=== PATIENT | male | born 2000 | race Caucasian/White ===

== ENCOUNTER 2023-10-16 14:38 | Outpatient (AMB) | payer OTHER, SELFPAY ==
--- NOTE | 2023-10-16 14:44 | A.OFFVIS_ITS ---
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 Patient reports that he has pain in the dorsal aspects of both the forearms. He has had medial and lateral cortisone injections about three years ago for tendonitis, these injections worked for about 1.5 to 2 years. Denies nudeness and tingling. He is an active weightlifter and this is difficult for him recently because of his lateral elbow pain. [facility] Social History (Updated 10/16/23 @ 14:47 by Katherin Sepulveda [facility]) Patient Tobacco Use Status: Never used Tobacco Current occupational status: employed Current occupation: [employer] Physical Exam Vital Signs: BMI result Body Mass Index 25.7 Const General: cooperative, healthy appearing, no acute distress and well groomed Orientation/consciousness: oriented to person and oriented to place HEENT Head: Yes normal to inspection, Yes normocephalic and Yes atraumatic Eyes General: appearance normal, both eyes and all related structures Alignment and Position: alignment normal Conjunctivae: conjunctivae normal EOM: EOMs intact bilaterally Neck Neck: Yes normal visual inspection and Yes trachea midline Resp Other: No rerpiratory distress Effort & Inspection: normal respiratory effort and able to speak in complete sentences Cardio Other: Palpable radial pulse with no appreciable rythmic abnormalities GI Other: No abdominal distension Back/Spine/Pelvis Cervical Spine: normal cervical lordosis and cervical ROM normal Skin General skin exam: no rashes or lesions noted Neuro General: oriented to person, oriented to place and gait normal Extrem Other: TTP bilateral lateral epicondyles and pain with ressited wrist extension Office Procedures Joint Injection/Drain Joint Injection/Drain Details: Injected 1 mL of Decadron and 3 mL 1% lidocaine and 3 mL of 0.25% Marcaine. Site was prepped using aseptic technique. Patient tolerated the procedure well. Primary Site: right tennis elbow Secondary Site: left tennis elbow Approach Used: anterolateral Coding 31516 - Epicondyle (49909 x2) Procedure code (CPT) selection complete Assessment & Plan Assessment & Plan (1) Lateral epicondylitis of both elbows: Code(s): M77.11 - Lateral epicondylitis, right elbow; M77.12 - Lateral epicondylitis, left elbow Plan: Bilateral lateral epicondylitis. Injected both elbows Discussed activity modification and PRP Follow up as needed Plan Injected bilateral elbows Coding Level of Care Code New Pt Level 3 (38887) Diagnoses Lateral epicondylitis of both elbows M77.11; M77.12 CPT Codes Coding - Joint 2: 93581 - Epicondyle ([id number])
[2023-10-16 14:46] VITALS: BMI 25.7
== END 2023-10-16 15:27 | disposition home or self-care (01) ==
PROVIDERS: Visit Provider Orthopaedic Surgery
DX: M77.11 Lateral epicondylitis, right elbow (principal); M77.12 Lateral epicondylitis, left elbow
CPT/HCPCS: 20550; 99203

== ENCOUNTER → 2023-10-16 14:38 | Outpatient (BNVA) | payer OTHER, SELFPAY | PROVIDERS: Visit Provider Orthopaedic Surgery | DX: M77.11 Lateral epicondylitis, right elbow (principal); M77.12 Lateral epicondylitis, left elbow | CPT/HCPCS: 20551; J0665; J1100 ==

== ENCOUNTER 2025-03-25 14:22 | Outpatient (AMB) | payer BC, SELFPAY ==
--- OUTSIDE RECORDS SUMMARY | 2025-03-25 15:20 | XMS_ITS | Encounter Summary ---
Author Organization [facility] Address [address] [place] [address] Phone Care Team Providers Care Shotgun Shell Loading Machine Operator Name Role Phone Kasie Campbell MD Primary Care Provider [phone] Encounter Details Date Type Department Care Team (Late st Contact Info) Description 04/16/2015 Documentation [facility] [place] Family Medicine [address] [place], [place] [id number] Family Medicine, Physician [address] [place], [place] 478[address] Social History Tobacco Use Types Packs/Day Years Used Date Smoking Tobacco: Never Assessed Sex and Gender Information Value Date Recorded Sex Assigned at Not on file Legal Sex Male 5:07 PM EDT Gender Identity Not on file Sexual Orientation Not on file documented as of this encounter Plan of Treatment Not on file documented as of this encounter Visit Diagnoses Not on filedocumented in this encounter Care Teams Shotgun Shell Loading Machine Operator Relationship Specialty Start Date End Date Kasie Campbell MD [address] [place] [address] PCP - General Pediatrics 03/13/20 11/24/22 documented as of this encounter
--- OUTSIDE RECORDS SUMMARY | 2025-03-25 15:20 | XMS_ITS | Encounter Summary ---
Author Organization [facility] Address [address] [place] [address] Phone Care Team Providers Care Assembler Musical Equipment Name Role Phone Kasie Campbell MD Primary Care Provider [phone] Encounter Details Date Type Department Care Team (Late st Contact Info) Description 01/20/2014 Documentation [facility] [place] [address] [place], [place] [id number] Family Medicine, Physician [address] [place], [place] 876451 Social History Tobacco Use Types Packs/Day Years [...] on filedocumented in this encounter Care Teams Assembler Musical Equipment Relationship Specialty Start Date End Date Kasie Campbell MD [address] [place] [address] PCP - General Pediatrics 03/13/20 11/24/22 documented as of this encounter
--- OUTSIDE RECORDS SUMMARY | 2025-03-25 15:20 | XMS_ITS | Encounter Summary ---
Author Organization [facility] Address [address] [place] [address] Phone Care Team Providers Care Cable Armorer Operator Name Role Phone Kasie Campbell MD Primary Care Provider [phone] Encounter Details Date Type Department Care Team (Late st Contact Info) Description 04/04/2013 Documentation [facility] [place] Family Medicine [address] [place], [place] [phone] Family Medicine, Physician [address] [place], [place] 805461 Social History Tobacco Use Types Packs/Day Years [...] on filedocumented in this encounter Care Teams Cable Armorer Operator Relationship Specialty Start Date End Date Kasie Campbell MD [address] [place] [address] PCP - General Pediatrics 03/13/20 11/24/22 documented as of this encounter
--- OUTSIDE RECORDS SUMMARY | 2025-03-25 15:20 | XMS_ITS | Encounter Summary ---
Author Organization [facility] Address [address] [place] [address] Phone Care Team Providers Care Vb Developer Name Role Phone Kasie Capmbell MD Primary Care Provider [phone] Encounter Details Date Type Department Care Team (Late st Contact Info) Description 07/18/2016 Documentation [facility] [place] Family Medicine [address] [place], [place] [phone] Family Medicine, Physician [address] [place], [place] [address]71 Social History Tobacco Use Types Packs/Day Years [...] on filedocumented in this encounter Care Teams Vb Developer Relationship Specialty Start Date End Date Kasie Campbell MD [address] [place] [address] PCP - General Pediatrics 03/13/20 11/24/22 documented as of this encounter
--- OUTSIDE RECORDS SUMMARY | 2025-03-25 15:20 | XMS_ITS | Encounter Summary ---
Author Organization [facility] Address [address] [place] [address] Phone Care Team Providers Care Remote Sensing Engineer Name Role Phone Kasie Campbell MD Primary Care Provider [phone] Encounter Details Date Type Department Care Team (Late st Contact Info) Description 08/04/2010 Documentation [facility] [place] Family Medicine [address] [place], [place] [phone] Family Medicine, Physician [address] [place], [place] 420531 Social History Tobacco Use Types Packs/Day Years [...] on filedocumented in this encounter Care Teams Remote Sensing Engineer Relationship Specialty Start Date End Date Kasie Campbell MD [address] [place] [address] PCP - General Pediatrics 03/13/20 11/24/22 documented as of this encounter
--- OUTSIDE RECORDS SUMMARY | 2025-03-25 15:20 | XMS_ITS | Encounter Summary ---
Author Organization [facility] Address [address] [place] [address] Phone Care Team Providers Care Waiter/Waitress Economy Class Name Role Phone Kasie Campbell MD Primary Care Provider [phone] Encounter Details Date Type Department Care Team (Late st Contact Info) Description 03/16/2017 Conversion Encounter [facility] [address] [place] [address] Social History Tobacco Use Types Packs/Day Years Used Date Smoking Tobacco: Never Comments:Never smoker Sex and Gender Information Value Date Recorded Sex Assigned at Not on file Legal Sex Male 5:07 PM EDT Gender Identity Not on file Sexual Orientation Not on file documented as of this encounter Plan of Treatment Not on file documented as of this encounter Visit Diagnoses Not on filedocumented in this encounter Care Teams Waiter/Waitress Economy Class Relationship Specialty Start Date End Date Kasie Campbell MD [address] [place] [address] PCP - General Pediatrics 03/13/20 11/24/22 documented as of this encounter
--- OUTSIDE RECORDS SUMMARY | 2025-03-25 15:20 | XMS_ITS | Encounter Summary ---
Author Organization [facility] Address [address] [place] [address] Phone Care Team Providers Care Sr. Operations Manager Name Role Phone Kasie Campbell MD Primary Care Provider [phone] Encounter Details Date Type Department Care Team (Late st Contact Info) Description 02/05/2016 [place]ation [facility] [place] [address] [place], [place] [phone] Family Medicine, Physician [address] [place], [place] 585661 Social History Tobacco Use Types Packs/Day Years [...] on filedocumented in this encounter Care Teams Sr. Operations Manager Relationship Specialty Start Date End Date Kasie Campbell MD [address] [place] [address] PCP - General Pediatrics 03/13/20 11/24/22 documented as of this encounter
--- OUTSIDE RECORDS SUMMARY | 2025-03-25 15:20 | XMS_ITS | Encounter Summary ---
Author Organization [facility] Address [address] [place] [address] Phone Care Team Providers Care Hog Ringer Name Role Phone Kasie Campbell MD Primary Care Provider [phone] Encounter Details Date Type Department Care Team (Late st Contact Info) Description 11/24/2015 Documentation [facility] [place] [address] [place], [place] [phone] Family Medicine, Physician [address] [place], [place] 462871 Social History Tobacco Use Types Packs/Day Years [...] on filedocumented in this encounter Care Teams Hog Ringer Relationship Specialty Start Date End Date Kasie Campbell MD [address] [place] [address] PCP - General Pediatrics 03/13/20 11/24/22 documented as of this encounter
--- OUTSIDE RECORDS SUMMARY | 2025-03-25 15:20 | XMS_ITS | Clinical Summary ---
Author Organization [facility] Address [address] [place] [address] Phone Care Team Providers Care Processing Manager Name Role Phone Unavailable Primary Care Provider Unavailabl e Allergies No known active allergies Medications No known medications Active Problems Problem Noted Date Diagnosed Date Food allergy 03/09/2021 Overview (03/09/2021): 03/09/2021 (age 20yr): History of abdominal symptoms with seafood ingestion History: 10/20/2020: DUSTIN, plan for follow up for skin testing. No further notes in chart Vision problem 03/16/2020 Overview (03/16/2020): 03/16/2020 (age 19yr): failed vision screen. He is seen an check clerk, has an appointment coming soon. He is trying to get his contact adjusted properly. Assessment & Plan (03/16/2020 9:25 AM EDT): 03/16/2020 (age 19yr): failed vision screen. He is seen an check clerk, has an appointment coming soon. He is trying to get his contact adjusted properly. Borderline high cholesterol 03/11/2020 Overview (03/11/2020): 11/2018: Non HDL-C 146 Assessment & Plan (03/16/2020 9:25 AM EDT): 03/16/2020 (age 19yr): Philip has been eating healthier and exercising. Will recheck cholesterol next year summer 2020 Essential hypertension 11/15/2017 Overview (03/01/2018): Followed by Dr Morris in Cardiology. Repeated BPS showed systolic in the 130s. A bit higher than the new standard of below 130 for normal but below the old standard of 140. Without other risk factors, Dr Morris suggests no treatment. He made suggestions for diet and exercise to prevent further elevation of BP. Assessment & Plan (03/16/2020 9:08 AM EDT): BP normal today. 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 Janay Villegas in [facility] every 2 year. They suggest Vit A palmitate 15,000 U/day, Lutein 12 mg/day and DHA 200 mg/day (or 2 3-oz servings of DHA rich fish like Tuna, salmon, Mackerel or sardines twice a week). Also suggest checking LFTs yearly if taking Vit A. Hat and sunglasses when outside. 03/11/2020 (age 19yr): Last visit was 04/2019, due for follow up 04/2021 Assessment & Plan (03/16/2020 9:20 AM EDT): 03/16/2020 (age 19yr): plans to follow up 04/2021 with [facility] Disease [facility] as recommended. Not taking supplements at all, not interested in it. Resolved Problems Problem Noted Date Diagnosed Date Resolved Date Chronic constipation 09/28/2016 019 Immunizations Immunization Administration Dates Next Due DTaP 5 07/16/2003, 1,1999,10/18,1999 H1N1 05/30/2009 HPV Vaccine 9 Valent 08/25/2015,04/15/2015 HPV, Quadrivalent 11/03/2014 Hep A, ped/adol 11/03/2014,10/31/2013 Hep B, ped/adol 1999,1999,1999 Hib (PRP-T) 10/20/2000, 0,1999,08/25 IPV 07/16/2003, 0,1999,08/25 Influenza Split 05/25/2012,10/25/2011,08/05/2010 Influenza, injectable, quadr ivalent, preservative free 05/12/2020,07/18/2019,04/26/2018,09/29,11/23/2016,04/15/2015,04/21/2014 Influenza, injectable, trivalent 05/30/2009,07/01 MMR 07/16/2003,06/19/2000 Meningococcal B Trumenba 07/18/2019,12/20/2018 Meningococcal Conj (Menactra) MCV4P 11/11/2015,0 10/25/2011 Pneumococcal Conjugate 10/20/2000,06/19/2000, Tdap 10/25/2011 Varicella 10/15/2007,06/19/2000 Zoster 07/15/2020 Family History Relation Name Status Comments Brother Alive Brother: Alive and well Father Father: High bl ood pressure, Alive and well Mother Alive Mother: Migrain es Other Family history of *Dental caries, Family history of *Sudden /AR under 55, Family history of ADD/ADHD, Family history of Obesity, Family history of Asthma, Family history of *CVA/Stroke, Family history of Deafness, Family history of *Heart Disease, Family history of Elevated cholesterol, Family history of Diabetes mellitus Sister Alive Sister: Alive a nd well Social History Tobacco Use Types Packs/Day Years Used Date Smoking Tobacco: Never Smokeless Tobacco: Never Comments:Never smoker Alcohol Use Standard Drinks/Week Comments Yes 7 (1 standard drink = 0.6 oz pur e alcohol) Drinks every other weekend Hunger/Food Answer Date Recorded In the last 12 months, did y ou or your family ever eat less than you felt you should because there wasn't enough money for food? No 03/16/2020 Stable Housing Answer Date Recorded Are you worried that in the next 2 months you may not have stable housing? No 03/16/2020 Transportation Concerns Answer Date Rec orded In the last 12 months, have you or your family ever had to go without healthcare because you didn't have a way to get there? No 03/16/2020 Hazards in Home Answer Date Recorded Think about the place you li ve. Do you have problems with any of the following? Pests (mice or roaches), mold, no/not working smoke detectors, water leaks, no window guards. No 2019 Financing Utilities Answer Date Recorde d In the last 12 months, has t he electric, gas, oil, or water company threatened to shut off your services in your home? No 03/16/2020 Safety at Home Answer Date Recorded Are you or your family worried about feeling saf e in your home? No 03/16/2020 Outside Support Answer Date Recorded Do you feel that you need mo re support from other people or programs to help you care for yourself or your family? No 03/16/2020 Understanding Health Concerns Answer Da te Recorded Do you need help understandi ng your or your child's healthcare needs (diagnosis, medications, plan, etc.)? No 03/16/2020 Financing Health Concerns Answer Date R ecorded In the last 12 months, was t here a time when your child needed to see a doctor or get medications or supplies but could not because of cost? No 03/16/2020 Missing School or Work Answer Date Eliezer rded Did you or your child miss s chool or work because of a health problem that could have been avoided? No 03/16/2020 Sex and Gender Information Value Date Recorded Sex Assigned at Not on file Legal Sex Male 5:07 PM EDT Gender Identity Not on file Sexual Orientation Not on file Last Filed Vital Signs Vital Sign Reading Time Taken Comments Blood Pressure 128/80 01/15/2021 1:40 PM EDT Pulse 73 07/29/2020 9:50 AM EST Temperature 36.6 C (97.8 F) 01/15/2021 1:40 PM EDT Respiratory Rate - - Oxygen Saturation - - Inhaled Oxygen Concentration - - Weight 83.2 kg (183 lb 5 oz) 01/15/2021 1:40 PM EDT Height 185.4 cm (6' 1 ) 01/15/2021 1:40 PM EDT Body Mass Index 24.19 01/15/2021 1:40 PM EDT Plan of Treatment Health Maintenance Due Date Last Done Comments DTaP,Tdap,and Td Vaccines (7 - Td or Tdap) 10/24/2021 10/25/2011, 07/16/2003, 12/26/2000, Additional history exists COVID-19 Vaccine ( - 2023-2 5 season) 2024 07/13/2021, 12/01/2020 Influenza Vaccines (#1) 2025 05/12/20, 07/18/2019, 04/26/2018, Additional history exists Hepatitis B Vaccines Completed 1999, 1999, 1999 HIB Vaccines Completed 10/20/2000, 07/1999, 1999, Additional history exists Pneumococcal Vaccine Completed 10/20/2000, 06/19/2000, 03/21/2000 IPV Vaccines Completed 07/16/2003, 0 07/1999, 1999, Additional history exists MMR Vaccines Completed 07/16/2003, 06/19/2000 Hepatitis A Vaccines Completed 11/03/2014, 11/01/19 14 HPV Vaccines Completed 08/25/2015, 03/31, 11/03/2014 Meningococcal Vaccine Completed 11/11/2015, 012 Men B Vaccine Completed 07/18/2019, 12/20/2018 Varicella Vaccines Completed 07/15/2020, 0 10/15/2007, 06/19/2000
--- OUTSIDE RECORDS SUMMARY | 2025-03-25 15:20 | XMS_ITS | Patient Health Record ---
Author Organization [facility] Address [address] [place] [address] Care Team Providers Care Benefits Consulting Analyst Name Role Phone Ramin Barone MD Primary Care Provider Unavail able RichAkil Unavailable [phone] Reason For Referral No Information Medications Medication SIG (Take, Route, Fr equency, Duration) Notes Start Date End Date Status Vitamin A 36375 UNIT 2 tablets Orally Once a day Active Lutein Active Fish Oil Active Social History Tobacco Use: Social History Observation Description Date Details (start date - stop date) Never Smoker NA - NA Tobacco Use/Smoking Question Answer Notes Are you a: nonsmoker Additional Findings: Tobacco Non-User Current no n-smoker Alcohol Screen Question Answer Notes Did you have a drink containing alcohol in the p ast year? No Points 0 Interpretation Negative Problems Problem Type SNOMED Code ICD Code Onset Dates Problem Status W/U Status Risk Notes Problem Plantar fascial fibromatosis (M72.2) Active confirmed Plan Of Treatment Pending Test Test Name Order Date X ray : Foot, left 2V 01/02/2012 X ray : Foot, right 2V 01/02/2012 Insurance Providers Payer Name Payer Address Payer Phone Subscriber Number Group Number Insured Name Patient Relationship to Insured Coverage Start Date Coverage End Date [employer] [address] [place] [address] [phone] [id number] Matthew Moulton Sr Natural Child - Insured has Financial Responsibility Medical (General) History Medical History History ICD Code headaches/migraines Surgical History Surgery Date(Month/Year) tonsillectomy
--- OUTSIDE RECORDS SUMMARY | 2025-03-25 15:20 | XMS_ITS | Encounter Summary ---
Author Organization [facility] Address [address] [place] [address] Phone Care Team Providers Care Manager Of Manufacturing Name Role Phone Kasie Campbell MD Primary Care Provider [phone] Encounter Details Date Type Department Care Team (Late st Contact Info) Description 09/22/2016 Documentation [facility] [place] [address] [place], [place] [phone] Family Medicine, Physician [address] [place], [place] [address]36[address] Social History Tobacco Use Types Packs/Day Years [...] on filedocumented in this encounter Care Teams Manager Of Manufacturing Relationship Specialty Start Date End Date Kasie Campbell MD [address] [place] [address] PCP - General Pediatrics 03/13/20 11/24/22 documented as of this encounter
--- OUTSIDE RECORDS SUMMARY | 2025-03-25 15:20 | XMS_ITS | Encounter Summary ---
Author Organization [facility] Address [address] [place] [address] Phone Care Team Providers Care Blocker Polishing Name Role Phone Kasie Campbell MD Primary Care Provider [phone] Encounter Details Date Type Department Care Team (Late st Contact Info) Description 04/04/2013 Documentation [facility] [place] [address] [place], [place] [id number] Family Medicine, Physician [address], [place] [address]4931 Social History Tobacco Use Types Packs/Day Years [...] on filedocumented in this encounter Care Teams Blocker Polishing Relationship Specialty Start Date End Date Kasie Campbell MD [address] [place] [address] PCP - General Pediatrics 03/13/20 11/24/22 documented as of this encounter
--- OUTSIDE RECORDS SUMMARY | 2025-03-25 15:20 | XMS_ITS | Encounter Summary ---
Author Organization [facility] Address [address] [place] [address] Phone Care Team Providers Care Archery Instructor Name Role Phone Kasie Campbell MD Primary Care Provider [phone] Encounter Details Date Type Department Care Team (Late st Contact Info) Description 06/10/2015 [place]ation [facility] [place] [address] [place], [place] [phone] Family Medicine, Physician [address] [place], [place] 8[address]111 Social History Tobacco Use Types Packs/Day Years [...] on filedocumented in this encounter Care Teams Archery Instructor Relationship Specialty Start Date End Date Kasie Campbell MD [address] [place] [address] PCP - General Pediatrics 03/13/20 11/24/22 documented as of this encounter
[2025-03-25 15:38] VITALS: BP 122/70; PULSE 71; TEMP 36.9; O2SAT 98; BMI 26.2
--- NOTE | 2025-03-25 15:38 | AM.OFFWIN_ITS ---
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 Patient states he was playing basketball when he strained his left inguinal region. Patient states he has pain that is worse with ambulation in his not been resolved by taking ibuprofen twice daily. Patient denies having any testicular pain, penile pain, dysuria, urinary frequency and continues to be able to achieve erections. [facility] Social History (Updated 10/16/23 @ 14:47 by Katherin Sepulveda [facility]) Patient Tobacco Use Status: Never used Tobacco Current occupational status: employed Current occupation: [employer] Review of Systems Const All systems reviewed & are unremarkable except as noted in HPI and below Reports no additional complaints and Denies malaise GI Denies abdominal pain, Denies bloating, Denies nausea and Denies vomiting Denies hematuria, Denies oliguria, Denies difficulty urinating, Denies genital pain, Denies testicular mass, Denies urinary frequency and Denies urinary hesitancy Musc Details: left inguinal pain Neuro Reports no additional complaints Psych Reports no additional complaints Endo Reports no additional complaints Aller/Immun Reports no additional complaints Physical Exam Vital Signs: Last Vital Signs Temp 98.4 F 03/25/25 15:38 Pulse 71 03/25/25 15:38 BP 122/70 03/25/25 15:38 Pulse Ox 98 03/25/25 15:38 Oxygen Delivery Method Room Air 03/25/25 15:38 BMI result Body Mass Index 26.2 Const General: cooperative, healthy appearing, comfortable, no acute distress, well developed, alert, awake and Physically active; No acute distress or ill appearing Nutritional Appearance: average body habitus Orientation/consciousness: patient oriented x3 Limitations: no limitations GI Inspection: Yes normal to inspection, No abdominal wall ecchymosis and No Abdominal wall edema Palpation (GI): Soft to palpation, nontender, no guarding and No Rebound tenderness present Percussion: Yes normal to percussion Auscultation: normal bowel sounds General: Yes Bimanual renal exam normal bilaterally and Yes bladder normal to palpation Male General Exam: Yes normal external exam, No hernia, No inguinal lymphadenopathy and Yes tenderness (left inguinal region that is worse with external L.hip rotation) Penis: normal penis and circumcised Meatus: meatus normal Scrotum: scrotum normal, not edematous, testes descended bilaterally, no inguinal hernias, no masses and no scrotal swelling Testes: Testes normal, testicular lie normal, no testicular swelling and no testicular tenderness Skin General skin exam: no rashes or lesions noted Neuro General: patient oriented x3 Extrem Left lower extremity: normal to inspection, full ROM, hip/thigh (L. inguinal pain with external rotation L. hip against resistance) and knee Details: normal to inspection, normal ROM and other (left inguinal pain to direct palpation; no testicular pain or edema); no tenderness and no swelling Psych Appearance: grossly normal Mental Status: mental status grossly normal Insight: Good insight present (Psych) Judgement: Good judgement present (Psych) Assessment & Plan Assessment & Plan (1) Strain of left inguinal muscle: Comment: Patient is evaluated. There is no evidence of an incarcerated hernia or testicular torsion. Patient's history coupled with his examination is consistent with a left inguinal strain. Patient will be discharged home with Naprosyn and methocarbamol. Code(s): S39.013A - Strain of muscle, fascia and tendon of pelvis, initial encounter Qualifiers: Encounter type: initial encounter Qualified Code(s): S39.013A - Strain of muscle, fascia and tendon of pelvis, initial encounter Plan: Naprosyn 500 mg b.i.d., methocarbamol 750 mg q.8 hours and heating pad at 20 minute intervals when at rest. Medications: New naproxen (Naprosyn) 500 mg PO BID 20 tabs 0RF methocarbamol 750 mg PO Q8H 20 tabs 0RF Coding Level of Care Code New Pt Level 4 (48993) Diagnoses Strain of left inguinal muscle, initial encounter S39.013A Encounter type: initial encounter Time Spent (min) 20
== END 2025-03-25 16:45 | disposition home or self-care (01) ==
PROVIDERS: Visit Provider Physician Assistant
DX: S39.013A Strain of muscle, fascia and tendon of pelvis, initial encounter (principal)